=== PATIENT | male | born 1995 | race Caucasian/White ===

== ENCOUNTER 2022-01-11 09:48 | Emergency (ER) | payer BC ==
[~2022-01-11] VITALS: Ht 177.8 cm; Wt 77.1 kg
[2022-01-11] MEDS ORDERED: PROP20TA7 PO (10:11)
[2022-01-11] MEDS ORDERED: GABA600T12 PO (10:11)
[2022-01-11] MEDS ORDERED: BUPR1FIL SL (10:11)
[2022-01-11] MEDS ORDERED: SUCR1TAB PO (10:11)
[2022-01-11] MEDS ORDERED: SERT50TA PO (10:11)
--- NOTE | 2022-01-11 10:11 | NUR ---
DR LEWIS AT BEDSIDE FOR EVAL.
[2022-01-11] MEDS ORDERED: LIDOCAINE 5% PATCH TD ONE ×2 (10:15)
[2022-01-11] MEDS ORDERED: ACETAMINOPHEN 325 MG TABLET ONE (10:15)
[2022-01-11] MEDS ORDERED: BUPRENORPHINE HCL 2 MG TAB.SUBL SL ONE ×2 (10:15)
[2022-01-11] MEDS ORDERED: ACETAMINOPHEN 325 MG TABLET PO ONE (10:15)
[2022-01-11] MEDS ORDERED: LIDO30AD10 TP (10:17)
[2022-01-11] MEDS ORDERED: IBUP-1955 PO (10:17)
--- NOTE | 2022-01-11 10:51 | NUR ---
PT MEDICATED PER MD ORDER.
[2022-01-11 10:52] VITALS: BP 116/78
--- NOTE | 2022-01-11 10:53 | NUR ---
PT FEELING BETTER AT THIS TIME. DISCHARGE IN STABLE CONDITION.
== END 2022-01-11 10:54 | disposition home or self-care (01) ==
LOC: ER 09:48
DX: G44.209 Tension-type headache, unspecified, not intractable (principal); F11.20 Opioid dependence, uncomplicated; G89.29 Other chronic pain; F41.9 Anxiety disorder, unspecified; F32.A Depression, unspecified; Z79.899 Other long term (current) drug therapy
CPT/HCPCS: A4663